=== PATIENT | female | born 1980 | race Caucasian/White ===

== ENCOUNTER → 2017-01-26 | Outpatient (REF) | payer OTHER ==
[~2017-01-26] MED LIST: DOCU10CA PO; IBUP80TA PO; PERC5TAB6 PO; PERCOCET PO; PROV10TA PO; ZOLO50TA PO
[2017-01-26 15:58] LABS: BASO % 0.5 % (0.0-1.0); EOS # 0.1 K/mm3 (0.0-0.50); EOS % 1.5 % (0.0-3.0); LARGE UNSTAINED CELL # 0.1 K/mm3 (0.0-0.4); LARGE UNSTAINED CELL % 1.1 % (0.0-4.0); LYMPH # 2.2 K/mm3 (1.5-4.5); LYMPH % 34.4 % (24.0-44.0); MEAN CORPUSCULAR HEMOGLOBIN 30.1 pg (27.0-33.0); MEAN CORPUSCULAR HGB CONC 33.3 g/dl (32.0-36.5); MEAN CORPUSCULAR VOLUME 90.5 fl (80.0-96.0); MONO # 0.4 K/mm3 (0.0-0.8); MONO % 5.7 % (0.0-5.0); NEUTROPHILS # 3.7 K/mm3 (1.8-7.7); NEUTROPHILS % 56.9 % (36.0-66.0); PLATELET COUNT, AUTOMATED 196 k/mm3 (150-450); WHITE BLOOD COUNT 6.4 K/mm3 (4.0-10.0)
[2017-01-26 16:31] LABS: PROGESTERONE 0.4 NG/ML
[2017-01-26 16:32] LABS: FOLLICLE STIMULATING HORMONE 4.7 mIU/mL; LUTEINIZING HORMONE 2.7 mIU/mL
[2017-01-26 16:41] LABS: ALBUMIN 3.8 GM/DL (3.2-5.2); ALBUMIN/GLOBULIN RATIO 1.23 (1.00-1.93); ALKALINE PHOSPHATASE 66 U/L (45-117); ALT/SGPT 38 U/L (12-78); ANION GAP 6 MEQ/L (8-16); AST/SGOT 16 U/L (15-37); BILIRUBIN,TOTAL 0.5 MG/DL (0.2-1.0); BLOOD UREA NITROGEN 10 MG/DL (7-18); CALCIUM LEVEL 8.9 MG/DL (8.5-10.1); CARBON DIOXIDE LEVEL 29 MEQ/L (21-32); CHLORIDE LEVEL 108 MEQ/L (98-107); CREATININE FOR GFR 0.79 MG/DL (0.55-1.02); FREE T4 1.01 NG/DL (0.76-1.46); GLOMERULAR FILTRATION RATE > 60.0 (>60); GLUCOSE, FASTING 80 MG/DL (70-105); POTASSIUM SERUM 4.3 MEQ/L (3.5-5.1); SODIUM LEVEL 143 MEQ/L (136-145); TOTAL PROTEIN 6.9 GM/DL (6.4-8.2)
== END ==
LOC: M LABDRAW1 15:47
PROVIDERS: ATTEND Specialist
DX: E28.2 Polycystic ovarian syndrome (principal)

== ENCOUNTER 2018-08-29 09:59 | Emergency (ER) | payer OTHER ==
[~2018-08-29] VITALS: Ht 167.6 cm; Wt 106.8 kg
[~2018-08-29 09:59] MED LIST changes: +PERC5TAB12 PO; -PERC5TAB6 PO
[2018-08-29] MEDS ORDERED: KETOROLAC 30 MG/ML VIAL (J1885) IV ONE (13:15)
[2018-08-29] MEDS ORDERED: NS 1,000 ML IV ONE (13:15)
--- NOTE | 2018-08-29 13:34 | REP ---
MRI lumbar spine without contrast: History: Low back pain. Saddle paresthesias. Constipation. Technique: Sagittal and axial T1 and T2-weighted scans are acquired in the usual fashion with and without fat saturation. Sequences include spin echo, turbo spin-echo, and STIR imaging sequences. MRI findings: Cortical and medullary bone signal intensity are normal. Vertebral body heights are preserved in the lumbar spine. Alignment is normal. There is no evidence of spondylolysis or spondylolisthesis. No extra vertebral abnormality is observed. The conus medullaris is normal in position and appearance at T12. At L1-2, axial and sagittal images demonstrate narrowing and diffuse disc bulging which indents the ventral margin of the thecal sac. No central canal stenosis or neural foraminal narrowing is seen. At L2-3, there is mild diffuse disc bulging. Canal size is borderline. Midline AP dimension of the thecal sac is 11 mm at this level. No focal disc herniation is seen. No neural foraminal narrowing is observed. At L3-4, there is mild central disc bulging. Borderline canal size is noted similar to 2-3 level. AP dimension of the thecal sac is 11 mm in the midline. No neural foraminal encroachment. At L4-5, there is mild facet and ligamentum flavum hypertrophy. Minimal diffuse disc bulging is seen. There is minimal bilateral neural foraminal narrowing at 4-5 due to facet hypertrophy and disc bulging. At L5-S1, there is osteoarthritic facet hypertrophy. No neural foraminal narrowing or central canal stenosis is seen. Minimal central disc bulging. Impression: Mild degenerative spondylosis changes. Borderline canal size at L3-4 and L2-3. Minimal neural foraminal narrowing bilaterally at L4-5. Facet hypertrophy at L4-5 bilaterally. Normal conus and cauda equina. Electronically Signed by Eb Muhammad MD 08/29/2018 06:14 P
--- NOTE | 2018-08-29 13:35 | REP ---
Acute abdominal series: Four views. History: Constipation. Findings: Upright chest radiograph is unremarkable. There is no evidence of infiltrate or free subdiaphragmatic air. Pleural angles are sharp. Heart size is normal. Supine and erect views of the abdomen demonstrate a normal bowel gas pattern. There is air and stool in a nondilated colon. Some formed stool is seen in the ascending colon. No large or small bowel dilation seen. No significant air fluid level noted. Psoas margins and flank stripes are intact. No mass, organomegaly, or pathologic calcification is seen. Impression: Moderate stool in the right colon. Otherwise negative abdominal series. Electronically Signed by Eb Muhammad MD 08/29/2018 06:15 P
[2018-08-29 13:45] LABS: BASO % 0.5 % (0.0-1.0); EOS # 0.2 10^3/uL (0.0-0.50); EOS % 2.1 % (0.0-3.0); HEMATOCRIT 43.6 % (36.0-47.0); HEMOGLOBIN 14.9 g/dl (12.0-15.5); LYMPH # 2.4 10^3/uL (1.5-4.5); LYMPH % 29.5 % (24.0-44.0); MEAN CORPUSCULAR HEMOGLOBIN 30.2 pg (27.0-33.0); MEAN CORPUSCULAR HGB CONC 34.2 g/dl (32.0-36.5); MEAN CORPUSCULAR VOLUME 88.4 fl (80.0-96.0); MONO # 0.6 10^3/uL (0.0-0.8); MONO % 6.9 % (0.0-5.0); NEUTROPHILS % 60.6 % (36.0-66.0); PLATELET COUNT, AUTOMATED 194 10^3/uL (150-450); RED BLOOD COUNT 4.93 10^6/uL (4.00-5.40); WHITE BLOOD COUNT 8.3 10^3/uL (4.0-10.0)
[2018-08-29 14:11] LABS: ALT/SGPT 26 U/L (12-78); BILIRUBIN,DIRECT < 0.1 MG/DL (0.0-0.2); BILIRUBIN,TOTAL 0.5 MG/DL (0.2-1.0); BLOOD UREA NITROGEN 12 MG/DL (7-18); CALCIUM LEVEL 8.6 MG/DL (8.5-10.1); CARBON DIOXIDE LEVEL 26 MEQ/L (21-32); CHLORIDE LEVEL 108 MEQ/L (98-107); CREATININE FOR GFR 0.85 MG/DL (0.55-1.30); GLOMERULAR FILTRATION RATE > 60.0 (>60); GLUCOSE, FASTING 80 MG/DL (70-100); LIPASE 172 U/L (73-393); POTASSIUM SERUM 4.1 MEQ/L (3.5-5.1); SODIUM LEVEL 140 MEQ/L (136-145); TOTAL PROTEIN 7.4 GM/DL (6.4-8.2)
[2018-08-29] MEDS ORDERED: ISOVUE-370 76% 100ML VIAL (Q9967) As Ordered ONE (14:18)
--- NOTE | 2018-08-29 14:49 | REP ---
Clinical: Constipation and vomiting. Decreased bowel movements. Technique: Axial contrast enhanced images from the lung bases to the pubic symphysis using 100 ml Isovue 370 intravenous contrast material with coronal and sagittal re-formations. Findings: Lung bases are clear. Liver, spleen, pancreas, gallbladder, bilateral adrenal glands and kidneys are normal. The enteric system is without obstruction or acute inflammatory process. Pelvis demonstrates collapsed bladder and evidence for prior hysterectomy as well as appendectomy. No ascites. No free air. No adenopathy. Abdominal aorta and vasculature within normal limits. Musculoskeletal structures demonstrate age-related changes without focal osseous abnormality. Impression: No acute abdominopelvic pathology appreciated. Evidence for prior hysterectomy and appendectomy. Electronically Signed by Mateus Vega MD 08/29/2018 02:40 P
[2018-08-29] MEDS ORDERED: CITRSOL8 PO (15:01)
[2018-08-29 15:34] VITALS: BP 111/61
== END 2018-08-29 15:35 | disposition home or self-care (01) ==
LOC: M ED 09:59
DX: K59.00 Constipation, unspecified (principal); M51.06 Intervertebral disc disorders with myelopathy, lumbar region; M47.817 Spondylosis without myelopathy or radiculopathy, lumbosacral region; M48.061 Spinal stenosis, lumbar region without neurogenic claudication; F32.9 Major depressive disorder, single episode, unspecified; F17.200 Nicotine dependence, unspecified, uncomplicated
CPT/HCPCS: 36415; 72148; 74021; 74177; 80048; 80076; 81001; 83690; 85025; 96374; 99284; J1885; Q9967

== ENCOUNTER → 2019-06-21 | Outpatient (REF) | payer OTHER ==
[~2019-06-21] MED LIST changes: +CITRSOL8 PO
== END ==
LOC: M LAB REF 10:50
PROVIDERS: ATTEND Physician Assistant
DX: R50.9 Fever, unspecified (principal)

== ENCOUNTER → 2020-03-06 | Outpatient (CLI) | payer OTHER ==
[2020-03-06 09:49] LABS: BASO % 0.4 % (0.0-1.0); EOS # 0.2 10^3/uL (0.0-0.5); EOS % 3.6 % (0.0-3.0); HEMATOCRIT 39.8 % (36.0-47.0); HEMOGLOBIN 13.2 g/dl (12.0-15.5); LYMPH # 1.8 10^3/uL (1.5-5.0); MEAN CORPUSCULAR HEMOGLOBIN 30.3 pg (27.0-33.0); MEAN CORPUSCULAR HGB CONC 33.2 g/dl (32.0-36.5); MEAN CORPUSCULAR VOLUME 91.3 fl (80.0-96.0); MONO # 0.5 10^3/uL (0.0-0.8); MONO % 9.8 % (0.0-5.0); NEUTROPHILS # 2.9 10^3/uL (1.5-8.5); PLATELET COUNT, AUTOMATED 166 10^3/uL (150-450); RED BLOOD COUNT 4.36 10^6/uL (4.00-5.40); WHITE BLOOD COUNT 5.5 10^3/uL (4.0-10.0)
[2020-03-06 10:22] LABS: ALBUMIN 3.8 GM/DL (3.2-5.2); ALT/SGPT 26 U/L (12-78); BILIRUBIN,TOTAL 0.5 MG/DL (0.2-1.0); BLOOD UREA NITROGEN 11 MG/DL (7-18); CALCIUM LEVEL 8.8 MG/DL (8.5-10.1); CARBON DIOXIDE LEVEL 29 MEQ/L (21-32); CHLORIDE LEVEL 109 MEQ/L (98-107); CHOLESTEROL LEVEL 208 MG/DL (<200); CHOLESTEROL RISK RATIO 5.621 (<5); CREATININE FOR GFR 0.88 MG/DL (0.55-1.30); FREE T4 0.93 NG/DL (0.76-1.46); GLOMERULAR FILTRATION RATE > 60.0 (>58); GLUCOSE, FASTING 89 MG/DL (70-100); HDL CHOLESTEROL 37 MG/DL (>40); LDL CHOLESTEROL 131 MG/DL (<100); NON-HDL-C 171 MG/DL; POTASSIUM SERUM 4.4 MEQ/L (3.5-5.1); SODIUM LEVEL 144 MEQ/L (136-145); TRIGLYCERIDES LEVEL 199 MG/DL (<150)
[2020-03-06 11:04] LABS: HEMOGLOBIN A1c 5.6 %
[2020-03-08 08:40] LABS: TOTAL 25(OH) VITAMIN D 35.4 NG/ML (30.0-100.0)
== END ==
LOC: M LAB 08:55
PROVIDERS: ATTEND Physician Assistant
DX: Z13.220 Encounter for screening for lipoid disorders (principal); Z13.29 Encounter for screening for other suspected endocrine disorder

== ENCOUNTER → 2020-03-17 | Outpatient (CLI) | payer OTHER ==
--- NOTE | 2020-03-19 14:11 | SLEEPHOME ---
DATE OF PROCEDURE: 03/17/2020 ORDERED BY: ZAKIYA Morales Diagnostic home sleep testing was performed due to concern for the obstructive sleep apnea syndrome in this patient with a history of hypersomnia. For testing a nocturnal T3 respiratory monitoring device was used. Continuous record was made of pulse, oxygen saturation, airflow, chest and abdominal strain, and body position. 9 hours and 59 minutes of data were reviewed. There were 8 hours and 15 minutes marked as time in bed. During the interval marked time in bed, there were 46 respiratory events identified of 10 seconds in duration or greater for a respiratory event index of 5.2. The events were primarily obstructive and primarily associated with the supine position. Baseline pulse rate was 67 beats per minute, pulse rate ranged 50-104. Baseline saturation was 95%, saturations did fall to 88%. Testing was performed in both the supine and nonsupine positions. IMPRESSION: Abnormal home sleep testing with repetitive respiratory events and oxygen desaturations to 88% with a respiratory event index of 5.2 is consistent with obstructive sleep apnea syndrome. RECOMMENDATIONS: As the events were associated primarily with the supine posture, sleep position retraining for avoidance of the supine posture would be reasonable. Should the patient's symptoms persist, referral for formal sleep evaluation should be considered.
== END ==
LOC: M SLEEP HO 09:54
PROVIDERS: ATTEND Physician Assistant
DX: G47.10 Hypersomnia, unspecified (principal)

== ENCOUNTER → 2021-04-05 | Outpatient (CLI) | payer OTHER ==
[~2021-04-05] MED LIST changes: +CRES10TA PO; +CYCL-707 PO; +WELLTAB40 PO
[2021-04-05 09:32] LABS: BASO % 0.5 % (0.0-1.0); EOS # 0.2 10^3/uL (0.0-0.5); EOS % 2.3 % (0.0-3.0); HEMATOCRIT 40.4 % (36.0-47.0); HEMOGLOBIN 13.2 g/dl (12.0-15.5); LYMPH # 1.8 10^3/uL (1.5-5.0); LYMPH % 28.5 % (24.0-44.0); MEAN CORPUSCULAR HEMOGLOBIN 29.9 pg (27.0-33.0); MEAN CORPUSCULAR HGB CONC 32.7 g/dl (32.0-36.5); MEAN CORPUSCULAR VOLUME 91.6 fl (80.0-96.0); MONO # 0.5 10^3/uL (0.0-0.8); MONO % 7.8 % (2.0-8.0); NEUTROPHILS # 3.9 10^3/uL (1.5-8.5); NEUTROPHILS % 60.6 % (36.0-66.0); PLATELET COUNT, AUTOMATED 207 10^3/uL (150-450); RED BLOOD COUNT 4.41 10^6/uL (4.00-5.40); WHITE BLOOD COUNT 6.4 10^3/uL (4.0-10.0)
[2021-04-05 09:54] LABS: ALBUMIN 4.1 GM/DL (3.2-5.2); ALT/SGPT 30 U/L (12-78); BILIRUBIN,TOTAL 0.6 MG/DL (0.2-1.0); BLOOD UREA NITROGEN 11 MG/DL (7-18); CALCIUM LEVEL 9.4 MG/DL (8.5-10.1); CARBON DIOXIDE LEVEL 30 MEQ/L (21-32); CHLORIDE LEVEL 106 MEQ/L (98-107); CHOLESTEROL LEVEL 270 MG/DL (<200); CHOLESTEROL RISK RATIO 5.625 (<5); CREATININE FOR GFR 0.86 MG/DL (0.55-1.30); GLOMERULAR FILTRATION RATE > 60.0 (>58); GLUCOSE, FASTING 91 MG/DL (70-100); HDL CHOLESTEROL 48 MG/DL (>40); LDL CHOLESTEROL 188 MG/DL (<100); NON-HDL-C 222 MG/DL; POTASSIUM SERUM 4.5 MEQ/L (3.5-5.1); SODIUM LEVEL 142 MEQ/L (136-145); TOTAL PROTEIN 7.5 GM/DL (6.4-8.2); TRIGLYCERIDES LEVEL 170 MG/DL (<150)
== END ==
LOC: M LAB 08:30
PROVIDERS: ATTEND Physician Assistant
DX: E78.2 Mixed hyperlipidemia (principal)

== ENCOUNTER → 2021-04-28 | Outpatient (CLI) | payer OTHER ==
[~2021-04-28] MED LIST changes: -CRES10TA PO; -CYCL-707 PO; +E-Z-GAS II EFFERVESCENT PACKET (SODIUM BICARB./CITRIC ACID/SIMETHICONE) As Ordered ONE; +E-Z-HD 98% w/w 340GM SUSP BTL As Ordered ONE; +E-Z-PAQUE 96% w/w SUSP 176GM BTL As Ordered ONE; -WELLTAB40 PO
--- NOTE | 2021-04-28 09:16 | REP ---
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 COMPARISON: None. TECHNIQUE: PA chest and AP abdomen views were taken. The planned upper GI series was rescheduled due to ingestion of water the morning of the exam. FINDINGS: The lungs are well inflated and clear on bioassayist chest x-ray. Pleural angles are sharp. Heart size is normal. No active disease. Bowel gas pattern is unremarkable on KUB. Psoas margins and flank stripes are intact. No mass, organomegaly, or pathologic calcification seen. IMPRESSION: No acute disease. Upper GI rescheduled due to fluids ingestion the morning of the exam. <Electronically signed by Ray Muhammad > 04/28/21 [id number]
== END ==
LOC: M RAD 07:54
PROVIDERS: ATTEND Physician Assistant
DX: R13.10 Dysphagia, unspecified (principal)

== ENCOUNTER 2021-06-18 13:01 | Emergency (ER) | payer OTHER ==
[~2021-06-18] VITALS: Ht 167.6 cm; Wt 109.1 kg
[~2021-06-18 13:01] MED LIST changes: -E-Z-GAS II EFFERVESCENT PACKET (SODIUM BICARB./CITRIC ACID/SIMETHICONE) As Ordered ONE; -E-Z-HD 98% w/w 340GM SUSP BTL As Ordered ONE; -E-Z-PAQUE 96% w/w SUSP 176GM BTL As Ordered ONE
[2021-06-18 13:10] VITALS: BP 112/55
[2021-06-18] MEDS ORDERED: WELLTAB40 PO (13:16)
[2021-06-18] MEDS ORDERED: CRES10TA PO (13:16)
[2021-06-18] MEDS ORDERED: KETOROLAC 60MG 2ML VIAL IM ONE (13:20)
--- NOTE | 2021-06-18 13:48 | REP ---
INDICATION: fell COMPARISON: Correlation with MRI dated 08/29/2018 TECHNIQUE: AP, lateral, bilateral oblique, and coned-down views of the lumbar spine. FINDINGS: There is mild 5 mm grade 1 anterolisthesis at the L4-5 level with associated facet hypertrophy along with endplate sclerosis and minimal disc space narrowing. Moderate endplate sclerosis, facet hypertrophy and disc space narrowing at L5-S1 noted. Remainder of the visualized lower thoracic through L3-4 level demonstrates mild age-related changes. No evidence for acute fracture/compression injury or acute subluxation. IMPRESSION: [id number] degenerative spondylosis primarily involving L4-5 and L5-S1. No acute fracture/compression injury. <Electronically signed by Mateus Vega > 06/18/21 [id number]
--- NOTE | 2021-06-18 13:49 | REP ---
INDICATION: fell COMPARISON: None. TECHNIQUE: AP, lateral, and in late views of the sacrum/coccyx. FINDINGS: Sacroiliac joints are symmetric and normal. Sacrum and coccyx appear intact. No evidence for acute fracture or dislocation. IMPRESSION: . No acute fracture or dislocation. <Electronically signed by Mateus Vega > 06/18/21 [id number]
--- NOTE | 2021-06-18 13:50 | REP ---
INDICATION: fell COMPARISON: None. TECHNIQUE: Frontal view of the pelvis with neutral and frog lateral views of the right hip. FINDINGS: No acute fracture or dislocation. Early moderate degenerative changes to the right hip includes increased sclerosis along the acetabular roof with marginal spurring. IMPRESSION: No evidence for acute fracture or dislocation. <Electronically signed by Mateus Vega > 06/18/21 [id number]
--- OUTSIDE RECORDS SUMMARY | 2021-06-18 13:52 | CCD | Continuity of Care Document ---
Author Author [facility] Organization Unknown Address [place] [address] Phone [phone] Care Team Providers Care Climatologist Name Role Phone Jennifer Workman D.O. AUTM Pancho Zamarripa M.D AUTM [phone] Problems Active Problems Provider Date Ex-smoker ZAKIYA Lozano Onset: 04/07/2021 Mixed hyperlipidemia ZAKIYA Lozano Onset: 04/05/2020 Tobacco user ZAKIYA Lozano Onset: 04/05/2020 Mild recurrent major depression ZAKIYA Lozano Onset: 0 03/04/2020 Social History Type Date Description Comments Sex Unknown Tobacco Use Start: Unknown Heavy tobacco smoker (more than 10 cigarettes/day) 1 pack/day ETOH Use Denies alcohol use Recreational Drug Use Denies Drug Use Tobacco Use Start: 09/03/91 End: 09/03/20 Patient is a forme r smoker 30 years 1 PPD Smoking Status Reviewed: 04/07/21 Patient is a former smoker 30 years 1 PPD Exercise Type/Frequency Exercises regularly Sun Exposure Uses sunscreen Seat Belt/Car Seat Always uses seat belt Allergies, Adverse Reactions, Alerts Description No Known Drug Allergies Medications Active Medications SIG Qnty Indications Ordering Provide r Date Buspirone HCL 10mg Tablets 1 by mouth twice a day as needed 60tabs Cheli RomeroOSenia 04/07/2021 Crestor 10mg Tablets 1 by mouth every evening 90tabs E78.2 Cheli RomeroOSenia 04/07 Bupropion Hydrochloride ER (XL) 300mg Tablets ER 24HR 1 by mouth every day 90tabs F33.0 Jennifer Workman D.O. 04/05/2020 Ra Nicotine Gum 2mg Gum one piece of gum every 6 hours or as needed 60units Jennifer Workman D.O. 03/04/2020 Vitamin D3 Maximum Strength 125mcg (5000 Ut) Capsules take one tablet daily by mouth. Unknown Loratadine 10mg Capsules 1 by mouth every day Unknown B Complex Tablets Unknown Chromium 400mcg Tablets Unknown Cascade 3 1000mg Capsules 1 capsule by mouth in am Unknown Garlic 10mg Capsules Unknown Immunizations CPT Code Status Date Vaccine Lot # [id number] Given 04/07/2021 Tetanus, Diphthe sander Toxoids/Acellular Pertussis Vaccine 7 Or > [id number] Vital Signs Date Vital Result Comment 04/07/2021 9:47am BP Systolic 126 mmHg BP Diastolic 68 mmHg Height 67.6 inches 5'7.60" Weight 239.25 lb BMI (Body Mass Index) 36.8 kg/m2 Heart Rate 82 /min Respiratory Rate 18 /min Body Temperature 99.2 F O2 % BldC Oximetry 99 % [place] Body Weight 135 lb 10/06/2020 3:38pm BP Systolic 120 mmHg BP Diastolic 80 mmHg Height 67.6 inches 5'7.60" Weight 233.00 lb BMI (Body Mass Index) 35.8 kg/m2 Heart Rate 80 /min Respiratory Rate 20 /min Body Temperature 99.0 F O2 % BldC Oximetry 97 % [place] Body Weight 135 lb Results Test Acquired Date Facility Test Result H/L Range Note CBC With Differential 04/05/[address] [id number] [phone] White Blood Count 6.4 10 Normal 4.0-10.0 Red Blood Count 4.41 10 Normal 4.00-5.40 Hemoglobin 13.2 g/dL Normal 12.0-15.5 Hematocrit 40.4 % Normal 36.0-47.0 Mean Corpuscular Volume 91.6 fl Normal 80.0-96.0 Mean Corpuscular Hemoglobin 29.9 pg Normal 27.0-33.0 Mean Corpuscular HGB Conc 32.7 g/dL Normal 32.0-36.5 Red Cell Distribution Width 12.1 % Normal 11.5-14.5 Platelet Count, Automated 207 10 Normal 150-450 Neutrophils % 60.6 % Normal 36.0-66.0 Lymph % 28.5 % Normal 24.0-44.0 [place] % 7.8 % Normal 2.0-8.0 Eos % 2.3 % Normal 0.0-3.0 Baso % 0.5 % Normal 0.0-1.0 Immature Granulocyte % 0.3 % Normal 0-3.0 Nucleated Red Blood Cell % 0.0 % Normal 0-0 Neutrophils # 3.9 10 Normal 1.5-8.5 Lymph # 1.8 10 Normal 1.5-5.0 [place] # 0.5 10 Normal 0.0-0.8 Eos # 0.2 10 Normal 0.0-0.5 Baso # 0.0 10 Normal 0.0-0.2 Comprehensive Metabolic Profil 04/05/[address] [address] [phone] Glucose, Fasting 91 mg/dL Normal 70-100 Blood Urea Nitrogen 11 mg/dL Normal 7-18 Creatinine For GFR 0.86 mg/dL Normal 0.55-1.30 Glomerular Filtration Rate > 60.0 Normal >58 1 Sodium Level 142 mEq/L Normal 136-145 Potassium Serum 4.5 mEq/L Normal 3.5-5.1 Chloride Level 106 mEq/L Normal 98-107 Carbon Dioxide Level 30 mEq/L Normal 21-32 Anion Gap 6 mEq/L Low 8-16 Calcium Level 9.4 mg/dL Normal 8.5-10.1 Ast/Sgot 13 U/L Normal 7-37 Alt/SGPT 30 U/L Normal 12-78 Alkaline Phosphatase 64 U/L Normal 45-117 Bilirubin,Total 0.6 mg/dL Normal 0.2-1.0 Total Protein 7.5 GM/DL Normal 6.4-8.2 Albumin 4.1 GM/DL Normal 3.2-5.2 Albumin/Globulin Ratio 1.2 Normal 1.2-2.2 Lipid Panel 04/05/2021 [facility] [address] [place] [address] [phone] Triglycerides Level 170 mg/dL High <150 Cholesterol Level 270 mg/dL High <200 HDL Cholesterol 48 mg/dL Normal >40 LDL Cholesterol 188 mg/dL High <100 Non-HDL-C 222 mg/dL Normal Cholesterol Risk Ratio 5.625 High <5 1 Units are mL/min/1.73 m2 Chronic Kidney Disease Staging per NKF: Stage I & II GFR >=60 Normal to Mildly Decreased Stage III GFR 30-59 Moderately Decreased Stage IV GFR 15-29 Severely Decreased Stage V GFR <15 Very Little GFR Left ESRD GFR <15 on COUNTER CONTROL OPERATOR Procedures Date Code Description Status 04/07/2021 08500 Preventive Visit Est 40-64 Yrs C ompleted 04/07/2021 34609 Office/Outpatient Established Lo w MDM 20-29 Min Completed Medical Devices Description No Information Available Encounters Type Date Location Provider Dx Diagnosis Office Visit 04/07/2021 10:00a [facility] ZAKIYA Lozano Z00.01 Encounter for general adult medical exam w abnormal findings E78.2 Mixed hyperlipidemia F33.0 Major depressive disorder, r ecurrent, mild R47.02 Dysphasia Z87.891 Personal history of nicotine dependence Assessments Date Code Description Provider 04/07/2021 Z00.01 Encounter for genera l adult medical examination with abnormal findings ZAKIYA Lozano 04/07/2021 E78.2 Mixed hyperlipidemia ZAKIYA Jameson 04/07/2021 F33.0 Major depressive disorder, recur rent, mild ZAKIYA Lozano 04/07/2021 R47.02 Dysphasia ZAKIYA Lozano 04/07/2021 Z87.891 Personal history of nicotine dep endence ZAKIYA Loznao Plan of Treatment Future Appointment(s):* 07/11/2021 1:00 pm - ZAKIYA Lozano at [facility] 04/07/2021 - ZAKIYA Lozano* Z00.01 Encounter for general adult medical examination with abnormal findings* Comments:* Normal physical except for issues with cholesterol and swallowing problems. * E78.2 Mixed hyperlipidemia* New Medication:* Crestor 10 mg - 1 by mouth every evening * New Labs:* CBC With Differential, Scheduled: 07/08/21 * Comprehensive Metabolic Profil, Scheduled: 07/08/21 * Lipid Panel, Scheduled: 07/08/21 * Comments:* LDL at 188. We will start Crestor to help control your cholesterol * Follow up:* 3 months * F33.0 Major depressive disorder, recurrent, mild* Comments:* Continue with Wellbutrin at 300 mg XL. Take Buspirone as needed for anxiety and inability to sleep. * R47.02 Dysphasia* New Xrays:* Ugi Single Contrast W/Esophogram, Ordered: 04/07/21 * Comments:* We will schedule an upper GI swallow study to look into the cause of your dysphagia. * Z87.891 Personal history of nicotine dependence* New Xrays:* CT, thorax, low dose lung cancer screening w/out contrast, Ordered: 04/07/21 * Comments:* 1 PPD for 30 years. former smoker Functional Status Description No Information Available Mental Status Description No Information Available Referrals Description No Information Available
--- OUTSIDE RECORDS SUMMARY | 2021-06-18 13:52 | CCD ---
Continuity of Care Document (CCD) Created on: 04/06/2021 Gila Cervantes External Reference #: [id number] : [id number] Sex: Female Author Gila Rayo Organization [place] [address] Phone [phone] Care Team Providers Care Glacing Machine Tender Name Role Phone Jennifer Workman D.O. AUTM Pancho Zamarripa M.D AUTM [phone] Problems Active Problems Provider Date Mixed hyperlipidemia ZAKIYA Lozano Onset: 04/05/2020 Tobacco user ZAKIYA Lozano Onset: 04/05/2020 Mild recurrent major depression ZAKIYA Lozano Onset: 0 03/04/2020 Social History Type Date Description Comments Sex Unknown Tobacco Use Start: Unknown Heavy tobacco smoker (more than 10 cigarettes/day) 1 pack/day Smoking Status Reviewed: 04/05/20 Heavy tobacco smoker (more than 10 cigarettes/day) 1 pack/day ETOH Use Denies alcohol use Recreational Drug Use Denies Drug Use Tobacco Use Start: Unknown Heavy tobacco smoker (more than 10 cigarettes/day) Exercise Type/Frequency Exercises regularly Sun Exposure Uses sunscreen Seat Belt/Car Seat Always uses seat belt Allergies, Adverse Reactions, Alerts Description No Known Drug Allergies Medications Active Medications SIG Qnty Indications Ordering Provide r Date Hydroxyzine HCL 10mg Tablets 1 tab by mouth three times a day as needed for anxiety. Take up to 3 tablets before bed as needed for sleeping 90tabs F33.0 Cheli RomeroO Senia 10/06/2020 Bupropion Hydrochloride ER (XL) 300mg Tablets ER 24HR 1 by mouth every day 90tabs F33.0 Cheli RomeroOSenia 04/05/2020 Ra Nicotine Gum 2mg Gum one piece of gum every 6 hours or as needed 60units Jennifer Workman D.O. 03/04/2020 Vitamin D3 Maximum Strength 125mcg (5000 Ut) Capsules take one tablet daily by mouth. Unknown Loratadine 10mg Capsules 1 by mouth every day Unknown Immunizations Description No Information Available Vital Signs Date Vital Result Comment 10/06/2020 3:38pm BP Systolic 120 mmHg BP Diastolic 80 mmHg Height 67.6 inches 5'7.60" Weight 233.00 lb BMI (Body Mass Index) 35.8 kg/m2 Heart Rate 80 /min Respiratory Rate 20 /min Body Temperature 99.0 F O2 % BldC Oximetry 97 % [place] Body Weight 135 lb 04/05/2020 9:19am BP Systolic 132 mmHg BP Diastolic 84 mmHg Height 67.6 inches 5'7.60" Weight 228.50 lb BMI (Body Mass Index) 35.2 kg/m2 Heart Rate 65 /min Respiratory Rate 16 /min Body Temperature 97.2 F O2 % BldC Oximetry 98 % [place] Body Weight 135 lb Results Test Acquired Date Facility Test Result H/L Range Note CBC With Differential 04/05/[address] [id number] [phone] White Blood Count 6.4 10 Normal 4.0-10.0 [...] 36.0-66.0 Lymph % 28.5 % Normal 24.0-44.0 [place] % 7.8 % Normal 2.0-8.0 Eos % 2.3 % Normal 0.0-3.0 Baso % 0.5 % Normal 0.0-1.0 Immature Granulocyte % 0.3 % Normal 0-3.0 Nucleated Red Blood Cell % 0.0 % Normal 0-0 Neutrophils # 3.9 10 Normal 1.5-8.5 Lymph # 1.8 10 Normal 1.5-5.0 [place] # 0.5 10 Normal 0.0-0.8 Eos # 0.2 10 Normal 0.0-0.5 Baso # 0.0 10 Normal 0.0-0.2 Comprehensive Metabolic Profil 04/05/[address] [address] [phone] Glucose, Fasting 91 mg/dL Normal 70-100 Blood [...] Ratio 1.2 Normal 1.2-2.2 Lipid Panel 04/05/2021 [facility] [address] [place] [address] [phone] Triglycerides Level 170 mg/dL High <150 Cholesterol [...] Little GFR Left ESRD GFR <15 on MANAGER IT SECURITY Procedures Description No Information Available Medical Devices Description No Information Available Encounters Description No Information Available Assessments Description No Information Available Plan of Treatment Future Appointment(s):* 04/07/2021 10:00 am - ZAKIYA Lozano at [facility] Functional Status Description No Information Available Mental Status Description No Information Available Referrals Description No Information Available
--- OUTSIDE RECORDS SUMMARY | 2021-06-18 13:52 | CCD ---
Continuity of Care Document (CCD) Created on: 04/11/2021 ConsueloGila shannon External Reference #: [id number] : [id number] Sex: Female Author Author [facility]ila [facility] Organization Unknown [place] [address] Phone [phone] Care Team Providers Care Tour Operator Name Role Phone Jennifer Workman D.O. AUTM [phone] Pancho Zamarripa M.D AUTM [phone] Problems Active Problems Provider Date Ex-smoker ZAKIYA Lozano Onset: 04/07/2021 Mixed hyperlipidemia ZAKIYA Lozano Onset: 04/05/2020 Tobacco user ZAKIYA Lzoano Onset: 04/05/2020 Mild recurrent major depression ZAKIYA [...] Complex Tablets Unknown Chromium 400mcg Tablets Unknown [place] 3 1000mg Capsules 1 capsule by mouth in am Unknown Garlic 10mg Capsules Unknown Immunizations CPT Code Status Date Vaccine Lot # [id number] Given 04/07/2021 Tetanus, Diphthe sander Toxoids/Acellular Pertussis Vaccine 7 Or > [id number] Vital Signs Date Vital Result Comment 04/07/2021 9:47am BP Systolic 126 mmHg BP Diastolic 68 mmHg Height 67.6 inches 5'7.60" Weight 239.25 lb BMI (Body Mass Index) 36.8 kg/m2 Heart Rate 82 /min Respiratory Rate 18 /min Body Temperature 99.2 F O2 % BldC Oximetry 99 % [place] Body Weight 135 lb 10/06/2020 3:38pm BP Systolic 120 mmHg BP Diastolic 80 mmHg Height 67.6 inches 5'7.60" Weight 233.00 lb BMI (Body Mass Index) 35.8 kg/m2 Heart Rate 80 /min Respiratory Rate 20 /min Body Temperature 99.0 F O2 % BldC Oximetry 97 % [place] Body Weight 135 lb Results Test Acquired Date Facility Test Result H/L Range Note CBC With Differential 04/05/[address] [id number] [phone] White Blood Count 6.4 10 Normal 4.0-10.0 [...] 36.0-66.0 Lymph % 28.5 % Normal 24.0-44.0 [place] % 7.8 % Normal 2.0-8.0 Eos % 2.3 % Normal 0.0-3.0 Baso % 0.5 % Normal 0.0-1.0 Immature Granulocyte % 0.3 % Normal 0-3.0 Nucleated Red Blood Cell % 0.0 % Normal 0-0 Neutrophils # 3.9 10 Normal 1.5-8.5 Lymph # 1.8 10 Normal 1.5-5.0 [place] # 0.5 10 Normal 0.0-0.8 Eos # 0.2 10 Normal 0.0-0.5 Baso # 0.0 10 Normal 0.0-0.2 Comprehensive Metabolic Profil 04/05/[address] [address] [phone] Glucose, Fasting 91 mg/dL Normal 70-100 Blood [...] Ratio 1.2 Normal 1.2-2.2 Lipid Panel 04/05/2021 [facility] [address] [place] [address] [phone] Triglycerides Level 170 mg/dL High <150 Cholesterol [...] Little GFR Left ESRD GFR <15 on TITLE SEARCH MANAGER Procedures Date Code Description Status 04/07/2021 05949 Preventive Visit Est 40-64 Yrs C ompleted 04/07/2021 56477 Office/Outpatient Established Lo w MDM 20-29 Min Completed Medical Devices Description No Information Available Encounters Type Date Location Provider Dx Diagnosis Office Visit 04/07/2021 10:00a [facility] ZAKIYA Lozano Z00.01 Encounter for general adult [...] Personal history of nicotine dep endence ZAKIYA Lozano Plan of Treatment Future Appointment(s):* 07/11/2021 1:00 pm - ZAKIYA Lozano at [facility] Functional Status Description No Information Available Mental Status Description No Information Available Referrals Description No Information Available
--- OUTSIDE RECORDS SUMMARY | 2021-06-18 13:52 | CCD ---
Author Author [facility] Address Unknown Phone Unavailable Care Team Providers Care Health Information Technician Name Role Phone Vijaya Horton PA Unavailable Unavailable Horton, Vijaya AguilarMilena PA Unavailable Unavailable Horton, Vijaya AguilarMilena PA Unavailable Unavailable Horton, Vijaya Milena PA Unavailable Unavailable Horton, Vijaya AguilarMilena PA Unavailable Unavailable Horton, Vijaya Milena PA Unavailable Unavailable Horton, Vijaya AguilarMilena PA Unavailable Unavailable Horton, Vijaya Milena PA Unavailable Unavailable Horton, Vijaya Milena PA Unavailable Unavailable Horton, Vijaya Milena PA Unavailable Unavailable O'annika, A Deshawn PA Unavailable Unavailable O'annika, A Deshawn PA Unavailable Unavailable O'annika, A Deshawn PA Unavailable Unavailable O'annika, A Deshawn PA Unavailable Unavailable O'annika, A Deshawn PA Unavailable Unavailable O'annika, A Deshawn PA Unavailable Unavailable O'annika, A Deshawn PA Unavailable Unavailable O'annika, A Deshawn PA Unavailable Unavailable O'annika, A Deshawn PA Unavailable Unavailable O'annika, A Deshawn PA Unavailable Unavailable O'annika, A Deshawn PA Unavailable Unavailable O'annika, A Deshawn PA Unavailable Unavailable O'annika, A Deshawn PA Unavailable Unavailable O'annika, A Deshawn PA Unavailable Unavailable O'annika, A Deshawn PA Unavailable Unavailable O'annika, A Desahwn PA Unavailable Unavailable O'annika, A Deshawn PA Unavailable Unavailable O'annika, A Deshawn PA Unavailable Unavailable O'annika, A Deshawn PA Unavailable Unavailable O'annika, A Deshawn PA Unavailable Unavailable O'annika, A Deshawn PA Unavailable Unavailable O'annika, A Deshawn PA Unavailable Unavailable O'annika, A Deshawn PA Unavailable Unavailable O'annika, A Deshawn PA Unavailable Unavailable O'annika, A Deshawn PA Unavailable Unavailable O'annika, A Deshawn PA Unavailable Unavailable O'annika, A Deshawn PA Unavailable Unavailable O'annika, A Deshawn PA Unavailable Unavailable O'annika, A Deshawn PA Unavailable Unavailable O'annika, A Deshawn PA Unavailable Unavailable O'annika, A Deshawn PA Unavailable Unavailable O'annika, A Deshawn PA Unavailable Unavailable O'annika, A Deshawn PA Unavailable Unavailable Re-disclosure Warning The records that you are about to access may contain information from federally-assisted alcohol or drug abuse programs. If such information is present, then the following federally mandated warning applies: This information has been disclosed to you from records protected by federal confidentiality rules (42 CFR part 2). The federal rules prohibit you from making any further disclosure of this information unless further disclosure is expressly permitted by the written consent of the person to whom it pertains or as otherwise permitted by 42 CFR part 2. A general authorization for the release of medical or other information is NOT sufficient for this purpose. The Federal rules restrict any use of the information to criminally investigate or prosecute any alcohol or drug abuse patient.The records that you are about to access may contain highly sensitive health information, the redisclosure of which is protected by Article 27-F of the [facility] Public Health law. If you continue you may have access to information: Regarding HIV / AIDS; Provided by facilities licensed or operated by the [facility] Office of Mental Health; or Provided by the [facility] Office for People With Developmental Disabilities. If such information is present, then the following [facility] mandated warning applies: This information has been disclosed to you from confidential records which are protected by state law. State law prohibits you from making any further disclosure of this information without the specific written consent of the person to whom it pertains, or as otherwise permitted by law. Any unauthorized further disclosure in violation of state law may result in a fine or custodial sentence or both. A general authorization for the release of medical or other information is NOT sufficient authorization for further disc losure. Family History Family Member Name Family Member Gender Family Member Status Date o f Status Description Data Source(s) Unknown Unknown Problem [facility] Encounters Encounter Providers Location Date Indications Data Source(s ) Outpatient Attender: Deshawn SIGALA [facility] 04/07/2021 10:00:00 AM EDT [facility] ([facility]) Outpatient Attender: Deshawn SIGALA [facility] 10/06/2020 03:00:00 PM EST [facility] ([facility]) Outpatient Attender: Milena Crane [facility] 09/11/2020 07:20:00 AM EST [facility] ([facility] Outpatient Attender: Milena Crane [facility] 05/22/2020 02:00:00 PM EDT [facility] ([facility]) Immunizations Vaccine Date Status Description Data Source(s) Tdap 04/07/2021 10:39:00 AM EDT completed M ED[facility] ([facility]) COVID-19 VACCINE Pfizer 11/05/2020 12:00:00 AM EST completed [facility] Vaccine Series Complete: YESThis Data wa s Submitted to [facility] Via [employer]. COVID-19 VACCINE Pfizer 10/15/2020 12:00:00 AM EST completed [facility] Vaccine Series Complete: NOThis Data was Submitted to [facility] [employer]. INFLUENZA VIRUS VACCINE QUADRIVAL [id number](6 MOS AND UP)/PF 04/23/2020 12:00:00 AM EDT completed [facility] Medications Medication Brand Name Start Date Product Form Dose Route Admi nistrative Instructions Pharmacy Instructions Status Indications Reaction Description Data Source(s) Rosuvastatin calcium 10 MG Oral Tablet ROSUVASTATIN CALCIUM 04/07/2021 12:00:00 AM EDT tablet 90 TAKE ONE TABLET BY MOUTH ESHA DAY IN THE EVENING TAKE ONE TABLET BY MOUTH EVERY DAY IN THE EVENING SOLD: 04/11/2021 [facility] buspirone hydrochloride 10 MG Oral Tablet Buspirone HCL 04/07/2021 12:00:00 AM EDT ORAL active [facility] ([facility]) 24 HR Bupropion Hydrochloride 300 MG Extended Release Oral T ablet BUPROPION HCL 04/07/2021 12:00:00 AM EDT tablet extended release 24 hr 90 TAKE ONE TABLET BY MOUTH EVERY DAY TAKE ONE TABLET BY MOUTH EVERY DAY SOLD: 04/11/2021 [facility] Rosuvastatin calcium 10 MG Oral Tablet [Crestor] Crestor 04/07/2021 12:00:00 AM EDT ORAL active MED[facility] ([facility]) buspirone hydrochloride 10 MG Oral Tablet BUSPIRONE HCL 04/07/2021 12:00:00 AM EDT tablet 60 TAKE ONE TABLET BY MOUTH TWI CE A DAY NEEDED TAKE ONE TABLET BY MOUTH TWICE A DAY NEEDED SOLD: 04/11/2021 [facility] 24 HR Bupropion Hydrochloride 300 MG Extended Release Oral T ablet BUPROPION HCL 10/13/2020 12:00:00 AM EST tablet extended release 24 hr 90 TAKE ONE TABLET BY MOUTH EVERY DAY TAKE ONE TABLET BY MOUTH EVERY DAY SOLD: 10/15/2020 [facility] 24 HR Bupropion Hydrochloride 300 MG Extended Release Oral T ablet BUPROPION HCL 10/13/2020 12:00:00 AM EST tablet extended release 24 hr 90 TAKE ONE TABLET BY MOUTH EVERY DAY TAKE ONE TABLET BY MOUTH EVERY DAY SOLD: 01/28/2021 [facility] 10 mg 10/07/2020 12:00:00 AM EST tablet 90 TAKE ONE TABLET BY MOUTH THREE TIMES A DAY NEEDED FOR ANXIETY TAKE ONE TABLET BY MOUTH THREE TIMES A D AY NEEDED FOR ANXIETY SOLD: 10/11/2020 [facility] Hydroxyzine Hydrochloride 10 MG Oral Tablet Hydroxyzine HCL 10/06/2020 12:00:00 AM EST ORAL active [facility] ([facility]) 24 HR Bupropion Hydrochloride 300 MG Extended Release Oral T ablet BUPROPION HCL 04/22/2020 12:00:00 AM EDT tablet extended release 24 hr 90 TAKE ONE TABLET BY MOUTH EVERY DAY TAKE ONE TABLET BY MOUTH EVERY DAY SOLD: 07/27/2020 [facility] 24 HR Bupropion Hydrochloride 300 MG Extended Release Oral T ablet BUPROPION HCL 04/22/2020 12:00:00 AM EDT tablet extended release 24 hr 90 TAKE ONE TABLET BY MOUTH EVERY DAY TAKE ONE TABLET BY MOUTH EVERY DAY SOLD: 04/22/2020 [facility] Insurance Providers Payer name Policy type / Coverage type Policy ID Covered constitution party ID Covered constitution party's relationship to méndez Policy Méndez Plan Information [facility] [id number] [id number] [facility] [id number] [facility] [id number] [id number] Health Net Fed Standard Health Maintenance Organization ([employer]) 18 [id number] Family Dependent [id number] [facility] JIMMY P [id number] P [id number] Problems, Conditions, and Diagnoses Code Display Name Description Problem Type Effective Dates Data Source(s) Z87.891 Ex-smoker Ex-smoker Problem 04/07/2021 12:00:00 AM ED T [facility] ([facility]) Surgeries/Procedures Procedure Description Date Indications Data Source(s) OFFICE OUTPATIENT VISIT 15 MINUTES 04/07/2021 12:00:00 AM EDT [facility] ([facility]) PERIODIC PREVENTIVE MED EST PATIENT 40-64YRS 12:00:00 AM EDT [facility] ([facility]) Results ID Date Data Source [id number] 04/05/2021 08:48:00 AM EDT [facility] ([facility]) Name Value Range Interpretation Code Description Data Yessenia rce(s) Supporting Document(s) Triglycerides Level 170 mg/dL Above high normal [facility] ([facility]) HDL Cholesterol 48 mg/dL Normal (applies to non-numeric results) [facility] ([facility]) Cholesterol Level 270 mg/dL Above high normal [facility] ([facility]) Non-HDL-C 222 mg/dL Normal (applies to non-numeric resul ts) [facility] ([facility]) Cholesterol Risk Ratio 5.625 Above high normal [facility] ([facility]) LDL Cholesterol 188 mg/dL Above high normal ME D[facility] ([facility]) ID Date Data Source [id number] 04/05/2021 08:48:00 AM EDT [facility] ([facility]) Name Value Range Interpretation Code Description Data Yessenia rce(s) Supporting Document(s) Glucose, Fasting 91 mg/dL 70-100 Normal (applies to non-numeric results) [facility] ([facility]) Blood Urea Nitrogen 11 mg/dL 7-18 Normal (applies to non-nume gaby results) [facility] ([facility]) Glomerular Filtration Rate Laboratory test result Normal (applies to non- numeric results) [facility] ([facility]) <content>Units are mL/min/1.73 m2</content>
<content></content>
<content>Chronic Kidney Disease Staging per NKF:</content>
<content></content>
<content>Stage I & II GFR >=60 Normal to Mildly Decreased</content>
<content>Stage III GFR 30- 59 Moderately Decreased</content>
<content>Stage IV GFR 15-29 Severely Decreased</content>
<content>Stage V GFR <15 Very Little GFR Left</content>
<content>ESRD GFR <15 on SURFACE HYDROLOGIST</content>
<content></content> Creatinine For GFR 0.86 mg/dL 0.55-1.30 Normal (applies to non -numeric results) [facility] ([facility]) Potassium Serum 4.5 meq/L 3.5-5.1 Normal (applies to non-numeric results) [facility] ([facility]) Sodium Level 142 meq/L 136-145 Normal (applies to non-numeric res ults) [facility] ([facility]) Carbon Dioxide Level 30 meq/L 21-32 Normal (applies to non-num desirae results) [facility] ([facility]) Chloride Level 106 meq/L 98-107 Normal (applies to non-numeric r esults) [facility] ([facility]) Anion Gap 6 meq/L 8-16 Below low normal [facility] Calcium Level 9.4 mg/dL 8.5-10.1 Normal (applies to non-numeric re sults) [facility] ([facility]) Alt/SGPT 30 U/L 12-78 Normal (applies to non-numeric resul ts) [facility] ([facility]) Ast/Sgot 13 U/L 7-37 Normal (applies to non-numeric resul ts) [facility] ([facility]) Total Protein 7.5 GM/DL 6.4-8.2 Normal (applies to non-numeric re sults) [facility] ([facility]) Alkaline Phosphatase 64 U/L 45-117 Normal (applies to non-num desirae results) [facility] ([facility]) Bilirubin,Total 0.6 mg/dL 0.2-1.0 Normal (applies to non-numeric results) [facility] ([facility]) Albumin 4.1 GM/DL 3.2-5.2 Normal (applies to non-numeric resul ts) [facility] ([facility]) Albumin/Globulin Ratio 1.2 1.2-2.2 Normal (applies to non-n umeric results) [facility] ([facility]) ID Date Data Source [id number] 04/05/2021 08:48:00 AM EDT [facility] ([facility]) Name Value Range Interpretation Code Description Data Yessenia rce(s) Supporting Document(s) White Blood Count 6.4 10 4.0-10.0 Normal (applies to non-numeri c results) [facility] ([facility]) Red Blood Count 4.41 10 4.00-5.40 Normal (applies to non-numeric results) [facility] ([facility]) Hematocrit 40.4 % 36.0-47.0 Normal (applies to non-numeric resul ts) [facility] ([facility]) Hemoglobin 13.2 g/dL 12.0-15.5 Normal (applies to non-numeric resul ts) [facility] ([facility]) Mean Corpuscular Volume 91.6 fl 80.0-96.0 Normal ( applies to non-numeric results) [facility] ([facility]) Mean Corpuscular HGB Conc 32.7 g/dL 32.0-36.5 Normal (applies to non-numeric results) [facility] ([facility]) Mean Corpuscular Hemoglobin 29.9 pg 27.0-33.0 Norm al (applies to non-numeric results) [facility] ([facility]) Red Cell Distribution Width 12.1 % 11.5-14.5 Norm al (applies to non-numeric results) [facility] ([facility]) Platelet Count, Automated 207 10 150-450 Normal (applies to non-numeric results) [facility] ([facility]) [place] % 7.8 % 2.0-8.0 Normal (applies to non-numeric resul ts) [facility] ([facility]) Lymph % 28.5 % 24.0-44.0 Normal (applies to non-numeric resul ts) [facility] ([facility]) Neutrophils % 60.6 % 36.0-66.0 Normal (applies to non-numeric re sults) [facility] ([facility]) Eos % 2.3 % 0.0-3.0 Normal (applies to non-numeric resul ts) [facility] ([facility]) Baso % 0.5 % 0.0-1.0 Normal (applies to non-numeric resul ts) [facility] ([facility]) Immature Granulocyte % 0.3 % 0-3.0 Normal (applies to non-n umeric results) [facility] ([facility]) Nucleated Red Blood Cell % 0.0 % 0-0 Normal (applies to n on-numeric results) [facility] ([facility]) Neutrophils # 3.9 10 1.5-8.5 Normal (applies to non-numeric re sults) [facility] ([facility]) Lymph # 1.8 10 1.5-5.0 Normal (applies to non-numeric resul ts) [facility] ([facility]) Eos # 0.2 10 0.0-0.5 Normal (applies to non-numeric resul ts) [facility] ([facility]) [place] # 0.5 10 0.0-0.8 Normal (applies to non-numeric resul ts) [facility] ([facility]) Baso # 0.0 10 0.0-0.2 Normal (applies to non-numeric resul ts) [facility] ([facility]) ID Date Data Source [id number] 09/11/2020 12:00:00 AM EST [facility] Name Value Range Interpretation Code Description Data Yessenia rce(s) Supporting Document(s) SARS coronavirus 2 Ag Negative [facility] This lab was ordered by [facility] and reported by [facility]. Procedure Social History Code Duration Value Status Description Data Source(s ) Smoking 04/07/2021 12:00:00 AM EDT Patient is a former smoker completed Patient is a former smoker [facility] ([facility]) Vital Signs ID Date Data Source UNK Name Value Range Interpretation Code Description Data Source(s) Systolic blood pressure 126 mm[Hg] 126 mm[Hg] M [facility] ([facility]) Diastolic blood pressure 68 mm[Hg] 68 mm[Hg] [facility] ([facility]) Body height 67.6 [in_i] 67.6 [in_i] [facility] ([facility]) 5'7.60" Body weight 239.25 [lb_av] 239.25 [lb_av] [facility] T ([facility]) Body mass index (BMI) [Ratio] 36.8 kg/m2 36.8 k g/m2 [facility] ([facility]) Heart rate 82 /min 82 /min [facility] ([facility]) Respiratory rate 18 /min 18 /min [facility] ( [facility]) Body temperature 99.2 [degF] 99.2 [degF] [facility] ([facility]) Oxygen saturation in Arterial blood by Pulse oximetry 99 % 99 % [facility] ([facility]) [place] body weight 135 [lb_av] 135 [lb_av] [facility] T ([facility]) Systolic blood pressure 120 mm[Hg] 120 mm[Hg] [facility] Body temperature 99.0 [degF] 99.0 [degF] [facility] ([facility]) [place] body weight 135 [lb_av] 135 [lb_av] [facility] T ([facility]) Diastolic blood pressure 80 mm[Hg] 80 mm[Hg] [facility] ([facility]) Body height 67.6 [in_i] 67.6 [in_i] [facility] ([facility]) 5'7.60" Body weight 233.00 [lb_av] 233.00 [lb_av] [facility] T ([facility]) Body mass index (BMI) [Ratio] 35.8 kg/m2 35.8 k g/m2 [facility] ([facility]) Heart rate 80 /min 80 /min [facility] ([facility]) Respiratory rate 20 /min 20 /min [facility] Oxygen saturation in Arterial blood by Pulse oximetry 97 % 97 % [facility] ([facility]) Systolic blood pressure 132 mm[Hg] 132 mm[Hg] M [facility] ([facility]) Diastolic blood pressure 82 mm[Hg] 82 mm[Hg] [facility] ([facility], [facility]) Heart rate 93 /min 93 /min [facility] ([facility], [facility]) Respiratory rate 16 /min 16 /min [facility] ( [facility], [facility]) Oxygen saturation in Arterial blood by Pulse oximetry 98 % 98 % [facility] ([facility], [facility]) Body temperature 96.3 [degF] 96.3 [degF] [facility] ([facility], [facility]) Body weight 220.00 [lb_av] 220.00 [lb_av] [facility] T ([facility], [facility]) Systolic blood pressure 123 mm[Hg] 123 mm[Hg] M ED[facility] ([facility], [facility]) Oxygen saturation in Arterial blood by Pulse oximetry 97 % 97 % [facility] ([facility], [facility]) Body temperature 97.8 [degF] 97.8 [degF] [facility] ([facility], [facility]) Body weight 220.00 [lb_av] 220.00 [lb_av] [facility] T ([facility], [facility]) Body height 66 [in_i] 66 [in_i] [facility] ([facility], [facility]) 5'6" Body mass index (BMI) [Ratio] 35.5 kg/m2 35.5 k g/m2 [facility] ([facility], [facility]) Diastolic blood pressure 83 mm[Hg] 83 mm[Hg] [facility] ([facility], [facility]) Heart rate 96 /min 96 /min [facility] ([facility]) Respiratory rate 18 /min 18 /min [facility] ( [facility], [facility])
[2021-06-18] MEDS ORDERED: CYCL-707 PO (14:18)
[2021-06-18] MEDS ORDERED: IBUP80TA PO (14:18)
== END 2021-06-18 14:54 | disposition home or self-care (01) ==
LOC: M ED 13:01 → EDBD 13:01 → M ED 14:54
DX: S30.0XXA Contusion of lower back and pelvis, initial encounter (principal); W10.9XXA Fall (on) (from) unspecified stairs and steps, initial encounter; Y92.098 Other place in other non-institutional residence as the place of occurrence of the external cause; Y93.9 Activity, unspecified; Y99.9 Unspecified external cause status; M47.816 Spondylosis without myelopathy or radiculopathy, lumbar region; M47.817 Spondylosis without myelopathy or radiculopathy, lumbosacral region; E66.9 Obesity, unspecified; F32.9 Major depressive disorder, single episode, unspecified; Z87.891 Personal history of nicotine dependence
CPT/HCPCS: 72110; 72220; 73502; 96372; 99284; J1885

== ENCOUNTER → 2021-07-07 | Outpatient (REF) | payer OTHER ==
[~2021-07-07] MED LIST changes: +CRES10TA PO; +CYCL-707 PO; +WELLTAB40 PO
== END ==
LOC: M LAB REF 17:09
PROVIDERS: ATTEND Physician Assistant
DX: U07.1 COVID-19 (principal)

== ENCOUNTER → 2021-08-13 | Outpatient (CLI) | payer OTHER ==
[2021-08-13 08:57] LABS: BASO % 0.3 % (0.0-1.0); EOS # 0.1 10^3/uL (0.0-0.5); HEMATOCRIT 38.9 % (36.0-47.0); HEMOGLOBIN 12.7 g/dl (12.0-15.5); LYMPH # 1.9 10^3/uL (1.5-5.0); LYMPH % 29.8 % (24.0-44.0); MEAN CORPUSCULAR HEMOGLOBIN 29.7 pg (27.0-33.0); MEAN CORPUSCULAR HGB CONC 32.6 g/dl (32.0-36.5); MEAN CORPUSCULAR VOLUME 90.9 fl (80.0-96.0); MONO # 0.6 10^3/uL (0.0-0.8); MONO % 8.6 % (2.0-8.0); NEUTROPHILS # 3.8 10^3/uL (1.5-8.5); NEUTROPHILS % 59.1 % (36.0-66.0); PLATELET COUNT, AUTOMATED 189 10^3/uL (150-450); RED BLOOD COUNT 4.28 10^6/uL (4.00-5.40); WHITE BLOOD COUNT 6.4 10^3/uL (4.0-10.0)
[2021-08-13 09:27] LABS: ALT/SGPT 22 U/L (12-78); BILIRUBIN,TOTAL 0.7 MG/DL (0.2-1.0); BLOOD UREA NITROGEN 14 MG/DL (7-18); CARBON DIOXIDE LEVEL 28 MEQ/L (21-32); CHLORIDE LEVEL 112 MEQ/L (98-107); CHOLESTEROL LEVEL 115 MG/DL (<200); CHOLESTEROL RISK RATIO 2.395 (<5); CREATININE FOR GFR 0.96 MG/DL (0.55-1.30); GLOMERULAR FILTRATION RATE > 60.0 (>58); GLUCOSE, FASTING 93 MG/DL (70-100); HDL CHOLESTEROL 48 MG/DL (>40); LDL CHOLESTEROL 41 MG/DL (<100); NON-HDL-C 67 MG/DL; POTASSIUM SERUM 4.2 MEQ/L (3.5-5.1); SODIUM LEVEL 144 MEQ/L (136-145); TOTAL PROTEIN 7.1 GM/DL (6.4-8.2); TRIGLYCERIDES LEVEL 128 MG/DL (<150)
== END ==
LOC: M LAB 08:12
PROVIDERS: ATTEND Family Medicine
DX: E78.2 Mixed hyperlipidemia (principal)

== ENCOUNTER → 2021-11-25 | Outpatient (CLI) | payer OTHER ==
[~2021-11-25] MED LIST changes: +MELO15TA28 PO; +PROHANCE 279.3MG/ML 15ML VIAL ONE; +PROHANCE 279.3MG/ML 5ML VIAL ONE
== END ==
LOC: M PLAIMG 11:51
PROVIDERS: ATTEND Physician Assistant
DX: S30.0XXA Contusion of lower back and pelvis, initial encounter (principal); N83.202 Unspecified ovarian cyst, left side
CPT/HCPCS: 72197; A9576

== ENCOUNTER 2021-11-26 09:58 | Emergency (ER) | payer OTHER ==
[~2021-11-26] VITALS: Ht 167.6 cm; Wt 107.6 kg
[~2021-11-26 09:58] MED LIST changes: -MELO15TA28 PO; -PROHANCE 279.3MG/ML 15ML VIAL ONE; -PROHANCE 279.3MG/ML 5ML VIAL ONE
[2021-11-26] MEDS ORDERED: MELO15TA28 PO (10:09)
[2021-11-26 10:49] LABS: BASO % 0.4 % (0.0-1.0); EOS # 0.2 10^3/uL (0.0-0.5); EOS % 2.7 % (0.0-3.0); HEMATOCRIT 42.4 % (36.0-47.0); HEMOGLOBIN 14.2 g/dl (12.0-15.5); LYMPH % 29.8 % (24.0-44.0); MEAN CORPUSCULAR HEMOGLOBIN 29.6 pg (27.0-33.0); MEAN CORPUSCULAR HGB CONC 33.5 g/dl (32.0-36.5); MEAN CORPUSCULAR VOLUME 88.3 fl (80.0-96.0); MONO # 0.6 10^3/uL (0.0-0.8); MONO % 8.2 % (2.0-8.0); NEUTROPHILS # 3.9 10^3/uL (1.5-8.5); NEUTROPHILS % 58.6 % (36.0-66.0); PLATELET COUNT, AUTOMATED 204 10^3/uL (150-450); WHITE BLOOD COUNT 6.7 10^3/uL (4.0-10.0)
[2021-11-26 11:01] LABS: INR 0.91; PROTHROMBIN TIME 12.7 SECONDS (12.7-14.5)
[2021-11-26 11:02] LABS: PARTIAL THROMBOPLASTIN TIME 29.3 SECONDS (25.9-37.0)
[2021-11-26 11:11] LABS: HCG, SERUM QUALITATIVE NEGATIVE (NEGATIVE)
[2021-11-26 11:15] LABS: CK-MB VALUE MASS < 1.0 NG/ML (<3.6); CPK CREATINE PHOSPHOKINASE 93 U/L (26-192); MB/CK RELATIVE INDEX 1.08 (< OR =4)
[2021-11-26 11:20] LABS: ALBUMIN 4.1 GM/DL (3.2-5.2); ALT/SGPT 43 U/L (12-78); BILIRUBIN,DIRECT 0.1 MG/DL (0.0-0.2); BILIRUBIN,TOTAL 0.4 MG/DL (0.2-1.0); BLOOD UREA NITROGEN 17 MG/DL (7-18); CALCIUM LEVEL 8.8 MG/DL (8.5-10.1); CARBON DIOXIDE LEVEL 28 MEQ/L (21-32); CHLORIDE LEVEL 113 MEQ/L (98-107); CREATININE FOR GFR 0.79 MG/DL (0.55-1.30); GLOMERULAR FILTRATION RATE > 60.0 (>58); GLUCOSE, FASTING 92 MG/DL (70-100); LIPASE 168 U/L (73-393); POTASSIUM SERUM 4.3 MEQ/L (3.5-5.1); SODIUM LEVEL 141 MEQ/L (136-145); TOTAL PROTEIN 7.4 GM/DL (6.4-8.2)
[2021-11-26 12:09] LABS: D-DIMER QUANT 781.58 ng/ml (<500)
[2021-11-26 12:10] LABS: CK-MB VALUE MASS < 1.0 NG/ML (<3.6); CPK CREATINE PHOSPHOKINASE 82 U/L (26-192); MB/CK RELATIVE INDEX 1.22 (< OR =4)
[2021-11-26] MEDS ORDERED: ISOVUE-370 76% 100ML VIAL As Ordered ONE (12:27)
[2021-11-26 15:03] VITALS: BP 123/78
== END 2021-11-26 15:00 | disposition home or self-care (01) ==
LOC: M ED 09:58
DX: R07.89 Other chest pain (principal); E78.5 Hyperlipidemia, unspecified; M25.551 Pain in right hip; N93.9 Abnormal uterine and vaginal bleeding, unspecified; F17.200 Nicotine dependence, unspecified, uncomplicated; Z90.710 Acquired absence of both cervix and uterus; Z79.899 Other long term (current) drug therapy
CPT/HCPCS: 36415; 71045; 71275; 80048; 80076; 82550; 82553; 83690; 84439; 84443; 84484; 84703; 85025; 85379; 85610; 85730; 93005; 93041; 94760; 99285; Q9967

== ENCOUNTER → 2022-02-28 | Outpatient (CLI) | payer OTHER ==
[~2022-02-28] MED LIST changes: +MELO15TA28 PO
== END ==
LOC: M WHC 12:27
PROVIDERS: ATTEND Obstetrics & Gynecology
DX: N83.202 Unspecified ovarian cyst, left side (principal)

== ENCOUNTER → 2024-03-08 | Outpatient (CLI) | payer OTHER ==
[2024-03-08 09:17] LABS: BASO % 0.4 % (0.0-1.0); EOS # 0.2 10^3/uL (0.0-0.5); HEMATOCRIT 41.9 % (36.0-47.0); HEMOGLOBIN 13.8 g/dl (12.0-15.5); MEAN CORPUSCULAR HEMOGLOBIN 30.9 pg (27.0-33.0); MEAN CORPUSCULAR HGB CONC 32.9 g/dl (32.0-36.5); MEAN CORPUSCULAR VOLUME 93.7 fl (80.0-96.0); MONO # 0.6 10^3/uL (0.0-0.8); NEUTROPHILS # 4.3 10^3/uL (1.5-8.5); NEUTROPHILS % 60.2 % (36.0-66.0); PLATELET COUNT, AUTOMATED 181 10^3/uL (150-450); RED BLOOD COUNT 4.47 10^6/uL (4.00-5.40); WHITE BLOOD COUNT 7.1 10^3/uL (4.0-10.0)
[2024-03-08 09:25] LABS: ERYTHROCYTE SEDIMENTATION RATE 24 mm/hr (0-20)
[2024-03-08 09:35] LABS: HEMOGLOBIN A1c 5.1 % (4.0-6.0)
[2024-03-08 09:51] LABS: ALBUMIN 3.8 G/DL (3.2-5.2); ALKALINE PHOSPHATASE 70 U/L (46-116); ALT/SGPT 28 U/L (7.0-40); AST/SGOT 13 U/L (<34); BILIRUBIN,TOTAL 0.7 MG/DL (0.3-1.2); BLOOD UREA NITROGEN 9 MG/DL (9-23); CARBON DIOXIDE LEVEL 28 MMOL/L (20-31); CHLORIDE LEVEL 110 MMOL/L (98-107); CHOLESTEROL LEVEL 173 MG/DL (<200); CREATININE FOR GFR 0.86 MG/DL (0.55-1.30); GLOMERULAR FILTRATION RATE > 60.0 (>58); GLUCOSE, FASTING 89 MG/DL (60-100); HDL CHOLESTEROL 30.3 MG/DL (>40); LDL CHOLESTEROL 108.7 MG/DL (<100); NON-HDL-C 142.7 MG/DL; POTASSIUM SERUM 4.3 MMOL/L (3.5-5.1); SODIUM LEVEL 142 MMOL/L (136-145); TOTAL PROTEIN 6.4 G/DL (5.7-8.2); TRIGLYCERIDES LEVEL 170 MG/DL (<150)
[2024-03-08 09:52] LABS: RHEUMATOID FACTOR QUANT 4.6 IU/ML (<14)
[2024-03-08 09:53] LABS: THYROID STIMULATING HORMONE 1.491 uIU/ML (0.55-4.78); TOTAL 25(OH) VITAMIN D 33.4 NG/ML (20.0-100.0)
[2024-03-10 15:22] LABS: ANA SCREEN, IFA NEGATIVE (NEGATIVE)
[2024-03-11 00:05] LABS: CYCLIC CITRULLINATED PEPTIDE < 16 UNITS (<20)
== END ==
LOC: M LAB 08:00
PROVIDERS: ATTEND Physician Assistant
DX: E78.2 Mixed hyperlipidemia (principal); F33.0 Major depressive disorder, recurrent, mild; Z82.61 Family history of arthritis

== ENCOUNTER 2024-06-06 06:28 | Day surgery (SDC) | payer OTHER ==
[~2024-06-06] VITALS: Ht 167.6 cm; Wt 111.2 kg
[~2024-06-06 06:28] MED LIST changes: +GNP250TA9 PO; +HYDR-3363 PO; +NS 1,000 ML IV ONE; +ROSU10TA61 PO
[2024-06-06] MEDS ORDERED: propofoL 200 MG/20 ML VIAL As Ordered ONE (07:56)
[2024-06-06] MEDS ORDERED: LIDOCAINE 2% 100MG/5ML SDV (FOR ANES.) As Ordered ONE (07:56)
[2024-06-06 09:00] VITALS: TEMP 98.1
[2024-06-06 09:17] VITALS: BP 137/63; O2SAT 100
== END 2024-06-06 09:28 | disposition home or self-care (01) ==
LOC: M OPP 06:28
PROVIDERS: ATTEND Surgery
DX: Z12.11 Encounter for screening for malignant neoplasm of colon (principal); K64.0 First degree hemorrhoids; E78.5 Hyperlipidemia, unspecified; K21.9 Gastro-esophageal reflux disease without esophagitis; F32.A Depression, unspecified; G47.30 Sleep apnea, unspecified; E28.2 Polycystic ovarian syndrome; Z87.891 Personal history of nicotine dependence; Z79.899 Other long term (current) drug therapy

== ENCOUNTER → 2024-12-02 | Outpatient (CLI) | payer OTHER ==
[~2024-12-02] MED LIST changes: -NS 1,000 ML IV ONE; +PROHANCE 279.3MG/ML 15ML VIAL As Ordered ONE; +PROHANCE 279.3MG/ML 5ML VIAL As Ordered ONE
== END ==
LOC: M RAD 11:55
PROVIDERS: ATTEND Physician Assistant
DX: Z12.31 Encounter for screening mammogram for malignant neoplasm of breast (principal)